=== PATIENT | male | born 1960 | race Caucasian/White ===

== ENCOUNTER → 2020-11-04 | Outpatient (CLI) | payer OTHER ==
[2020-11-04 16:07] LABS: RED BLOOD COUNT 4.91 M/UL (4.20-5.50); WHITE BLOOD COUNT 6.9 K/UL (4.5-11.0)
[2020-11-05 05:08] LABS: HIV SCREEN 4TH GENERATION WRFX Non Reactive (Non Reactive)
[2020-11-05 21:10] LABS: HEPATITIS C QUANTITATION HCV Not Detected IU/mL (.)
[2020-11-06 10:10] LABS: HBSAG SCREEN Negative (Negative); HEP A AB, IGM Negative (Negative); HEP B CORE AB, IGM Negative (Negative); HEP C VIRUS AB <0.1 (0.0-0.9)
== END ==
LOC: LAB 14:23
PROVIDERS: Preventive Medicine Addiction Medicine
DX: F11.20 Opioid dependence, uncomplicated (principal); Z09 Encounter for follow-up examination after completed treatment for conditions other than malignant neoplasm; Z72.51 High risk heterosexual behavior; R53.82 Chronic fatigue, unspecified; Z79.899 Other long term (current) drug therapy; F19.20 Other psychoactive substance dependence, uncomplicated; Z72.89 Other problems related to lifestyle
CPT/HCPCS: 36415; 80074; 80076; 85025; 87389; 87522

== ENCOUNTER → 2021-02-28 | Outpatient (CLI) | payer OTHER | LOC: RAD 16:37 | DX: M79.642 Pain in left hand (principal); M19.032 Primary osteoarthritis, left wrist; M19.042 Primary osteoarthritis, left hand | CPT/HCPCS: 73110; 73130 ==